=== PATIENT | male | born 1955 | race Caucasian/White ===

== ENCOUNTER → 2025-03-25 09:08 | Outpatient (BNVA) | payer MEDICARE, SELFPAY | PROVIDERS: Visit Provider Nurse Practitioner | DX: M16.11 Unilateral primary osteoarthritis, right hip (principal); M16.12 Unilateral primary osteoarthritis, left hip | CPT/HCPCS: 73523; 99204 ==

== ENCOUNTER 2025-04-18 13:03 | Outpatient (CLI) | payer MEDICARE, SELFPAY ==
[2025-04-18 14:11] LABS: Basophils # 0.1 10^3/uL (0.0-0.1); Basophils % 1.7 %; Eosinophils # 0.2 10^3/uL (0.0-0.8); Eosinophils % 3.7 %; Hematocrit 29.3 % (37-53); Lymphocytes # 1.4 10^3/uL (0.8-4.8); Lymphocytes % 25.7 %; Mean Corpuscular Hemoglobin 24.6 pg (27-33); Mean Corpuscular Volume 81.8 fl (82-101); Mean Platelet Volume 10.6 fL (7.4-10.4); Monocytes # 0.5 10^3/uL (0.2-0.9); Monocytes % 8.6 %; Neutrophils # 3.23 10^3/uL (1.8-7.7); Neutrophils % 59.9 %; Nucleated Red Blood Cells % 0 %; Platelet Count 383 10^3/cmm (157-399); Red Blood Count 3.58 10^6/uL (3.85-5.65); Red Cell Distribution Width 14.6 % (12.1-15.1); White Blood Count 5.38 10^3/uL (3.29-11.43)
[2025-04-18 14:13] LABS: Bilirubin Urine Negative (Negative); Blood Urine Negative (Negative); Glucose Urine UA Negative (Normal); Ketones Urine Negative (Negative); Leukocyte Esterase Urine 2+ (Negative); Nitrate Urine Positive (Negative); Protein Urine Negative (Negative); Specific Gravity, Urine 1.021 (1.005-1.030); Urine Appearance Cloudy (CLEAR); Urine Color Yellow (Yellow)
[2025-04-18 14:15] LABS: Add Urine Microscopic? YES; Bacteria Urine EXCEEDS /hpf; Squamous Epithelial Cell Urine 0-5 /hpf (0-5); WBC Urine 21-50 /hpf (0-5)
[2025-04-18 14:24] LABS: Add Urine Culture? Yes
[2025-04-18 14:30] LABS: Alanine Aminotransferase 18 U/L (0-41); Alkaline Phosphatase 86 U/L (40-130); Aspartate Amino Transferase 18 U/L (0-40); Blood Urea Nitrogen 14 mg/dL (8-23); Calcium 8.5 mg/dL (8.5-10.5); Carbon Dioxide 25 mmol/L (22-29); Chloride 106 mmol/L (98-107); Globulin 2.4 g/dL (1.3-4.6); Glomerular Filtration Rate 134.4 mL/min (90-130); Glucose 78 mg/dL (65-115); Osmolality Calculated 291 mOsm/kg (285-295); Sodium 141 mmol/L (136-145); Total Bilirubin 0.4 mg/dL (0.15-1.2); Total Protein 6.4 g/dL (6.6-8.7)
== END 2025-04-18 13:04 | disposition home or self-care (01) ==
LOC: LAB 13:05
PROVIDERS: Visit Provider Nurse Practitioner
DX: M25.559 Pain in unspecified hip (principal)
CPT/HCPCS: 36415; 80053; 81001; 85025

== ENCOUNTER → 2025-04-23 08:59 | Outpatient (BNVA) | payer MEDICARE, SELFPAY | PROVIDERS: Visit Provider Family Medicine | DX: Z01.818 Encounter for other preprocedural examination (principal) | CPT/HCPCS: 85007; 85027; 93005 ==

== ENCOUNTER 2025-04-29 12:39 | Outpatient (CLI) | payer MEDICARE, SELFPAY ==
[2025-04-29 13:20] LABS: Glucose Urine UA Negative (Normal); Nitrate Urine Negative (Negative); Specific Gravity, Urine 1.014 (1.005-1.030)
[2025-04-29 13:25] LABS: Add Urine Microscopic? YES
== END 2025-04-29 12:40 | disposition home or self-care (01) ==
LOC: LAB 12:44
PROVIDERS: Visit Provider Nurse Practitioner
DX: M16.11 Unilateral primary osteoarthritis, right hip (principal)
CPT/HCPCS: 81001

== ENCOUNTER 2025-04-30 14:50 | Observation (INO) | payer MEDICARE, SELFPAY ==
[2025-04-30] VITALS (14 sets, daily range): BP systolic 89–141; BP diastolic 50–87; PULSE 58–69; RESP 16–18; TEMP 34.1–36.4; O2SAT 94–100; BMI 30.8; BMI 31.9
[2025-04-30] MEDS: acetaminophen 1,000 MG/100 ML PIGGYBACK 400 MG IV ×2 (11:20→19:14)
--- NOTE | 2025-04-30 11:36 | ANES.PREANE2 ---
Pre-Anesthetic Assessment Height/Weight: Height 1.7 m Weight 89.358 kg Temp Pulse Resp BP Pulse Ox O2 Del Method 97.6 F 69 16 141/87 99 Room Air 04/30/25 10:56 04/30/25 10:56 04/30/25 10:56 04/30/25 10:56 04/30/25 10:56 04/30/25 10:56 Operation Date: 04/30/25 11:45 Proposed Procedures p LEFT Total Hip Arthroplasty(Left) - Laura Fernandez MD Familial anesthetic complications: None Was Beta Lisandro taken within 24 hours: N/A Was Clonidine taken within 24 hours: N/A Last intake: Intake Last Liquid Date 04/29/25 Last Liquid Time 22:00 Last Solid Date 04/29/25 Last Solid Time 15:00 Social No alcohol and No tobacco Exam alert, oriented x 3, clear to auscultation bilaterally and regular rate & rhythm Airway Mallampati: Class II Dentition: full CV/HEM Atrial Fibrillation (HX a fib, no issues since ablation), Anemia and Deep Vein Thrombosis (after her ablation, no longer on blood thinners) Anesthetic Plan ASA status: 3 Anesthesia: Regional (specify below) Risk of > 500 ml blood loss (7ml/kg in children): Yes, adequate IV access and fluids planned Other Pertinent Information Type and screen obtained Medications/Allergies Home Medications ?Medication ?Instructions ?Recorded ?Confirmed ?Last Taken ?Type dhea 10 progesterone 400 mg PO DAILY 03/25/25 04/29/25 04/08/25 History diclofenac sodium 50 mg 50 mg PO DAILY 03/25/25 04/29/25 04/23/25 History tablet,delayed release gabapentin 300 mg capsule 300 mg PO TID 03/25/25 04/29/25 04/29/25 History magnesium glycinate 100 mg (as 100 mg PO DAILY 03/25/25 04/29/25 04/23/25 History glycinate) tablet methylsulfonylmethane 1,000 mg 1,000 mg PO BID 03/25/25 04/29/25 Unknown History capsule (MSM) potassium chloride 10 mEq 10 meq PO DAILY 03/25/25 04/29/25 04/23/25 History capsule,extended release vitamin B complex 1 tab PO DAILY 03/25/25 04/29/25 04/23/25 History nitrofurantoin 100 mg PO Q12H 7 days #14 caps 04/18/25 04/29/25 04/08/25 Rx monohydrate/macrocrystals 100 mg capsule (Macrobid) albuterol sulfate 90 mcg/actuation 2 puff inhalation Q6H PRN Allergy 04/23/25 04/29/25 04/27/25 History aerosol inhaler (Ventolin HFA) Symptoms biotin 5,000 mcg chewable tablet 5,000 mcg PO DAILY 04/23/25 04/29/25 Unknown History black seed 4.5 gram/5 mL oral oil 4.5 g PO DAILY 04/23/25 04/29/25 Unknown History calcium 333 mg-magnesium 133 mg-D3 1 tab PO DAILY 04/23/25 04/29/25 Unknown History 1.67 mcg-zinc 5 mg tablet coenzyme Q10 200 mg/gram oral 200 mg PO DAILY 04/23/25 04/29/25 04/08/25 History powder (H2Q CoQ10) estradiol cream 1 applic topical DAILY 04/23/25 04/29/25 04/29/25 History multivitamin with minerals 1 tab PO DAILY 04/23/25 04/29/25 Unknown History (Hair,Skin and Nails tablet) vitamin D3 250 mcg (10,000 1 cap PO DAILY 04/23/25 04/29/25 04/23/25 History unit)-vitamin K2 45 mcg capsule Allergies Allergy/AdvReac Type Severity Reaction Status Date / Time No Known Allergies Allergy Verified 04/23/25 09:42 Current Medications Generic Name Dose Route Start Last Admin Trade Name Freq PRN Reason Stop Dose Admin Sodium Chloride 1,000 mls @ 30 mls/hr 04/30/25 10:15 04/30/25 11:32 Sodium Chloride 0.9% IV 05/01/25 10:14 30 mls/hr .Q24H GERBER Administration PFSH Anesthesia Medical History Primary osteoarthritis of right hip Primary osteoarthritis of left hip Social History Smoking and tobacco/nicotine status: never used tobacco/nicotine
[2025-04-30] MEDS: ceFAZolin 2,000 mg SDV 2000 MG IVP ×2 (12:16→19:14)
[2025-04-30] MEDS: BUPivacaine 0.5% INJ 10 mL 20 ML INJECTION (13:30)
[2025-04-30] MEDS: BUPivacaine liposome 13.3 mg/mL SDV 20 mL 266 MG INJECTION (13:30)
[2025-04-30] MEDS: ceFAZolin 1,000 mg SDV 1000 MG IRRIGATION (13:33)
--- NOTE | 2025-04-30 15:39 | XRR_ITS ---
PROCEDURE INFORMATION: Exam: XR Pelvis Exam date and time: 04/30/2025 3:38 PM Age: 69 years old Clinical indication: Device placement; Other: Moriah; Prior surgery; Surgery date: Post-operative (0-2 days); Additional info: S/P moriah, low ap pelvis TECHNIQUE: Imaging protocol: Radiologic exam of the pelvis. Views: 1 or 2 view. COMPARISON: CR XR hip BI m 5V wo/w pel* [id number] 03/25/2025 9:14 AM FINDINGS: Bones/joints: Left hip prosthesis is seen, with satisfactory/anatomic alignment and position. No indication of hardware failure. No adjacent fracture or acute osseous abnormality is seen. No significant change in appearance of the visualized pelvis and right hip otherwise with prior exam 03/25/2025. Soft tissues: Soft tissue lucency related to soft tissue changes adjacent to the left hip. XR/XR pelvis 1-2V* [id number] IMPRESSION: Status post left hip prosthesis, without acute findings.
--- NOTE | 2025-04-30 15:50 | ANE.PACU2 ---
Inpatient post-anesthesia follow up: Airway intact: Yes Vital signs: Temperature 97.9 F Pulse Rate 74 Respiratory Rate 17 Blood Pressure 104/63 Pulse Oximetry 98 Oxygen Delivery Me thod Room Air Oxygen Flow Rate Fraction of Inspir ed Oxygen Hydration adequate: Yes Nausea and vomiting: No Pain level: 1 Mental status: Baseline
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
--- NOTE | 2025-04-30 16:16 | PC.NURSE ---
This nurse assumed care of pt at this.
--- NOTE | 2025-04-30 16:17 | SUR.PHASEI ---
Temp on the floor was 96.8, Dr Fernandez notified by myself, Dr Fernandez requested rectal temp, Amy called Lamberto on [facility] to tell her rectal temp was needed, Lamberto reported rectal temp at 93.4, Samantha Osorio notified.
[2025-04-30] MEDS: mupirocin oint 22 gm 1 APPLIC NASAL (16:55)
[2025-04-30] MEDS: chlorhexidine gluconate 0.12% Btl 473 mL 30 ML MUCOUS MEM ×2 (16:56→21:17)
[2025-04-30] MEDS: sennosides-docusate Tablet 2 TAB PO (16:56)
[2025-04-30] MEDS: oxyCODONE 5 mg IR Tab/Cap PO ×2 (16:58→21:18)
[2025-05-01] VITALS (8 sets, daily range): BP systolic 104–122; BP diastolic 51–80; PULSE 64–74; RESP 16–19; TEMP 36.3–36.7; O2SAT 94–98
[2025-05-01] MEDS: oxyCODONE 5 mg IR Tab/Cap PO ×3 (01:48→14:34)
[2025-05-01 03:46] LABS: Hematocrit 23.8 % (36-47); Hemoglobin 6.80 g/dL (11.27-16.99); Mean Corpuscular HGB Conc 28.6 g/dL (30-55); Mean Corpuscular Hemoglobin 23.1 pg (27-33); Mean Corpuscular Volume 81.0 fl (85-98); Nucleated Red Blood Cells % 0 %; Platelet Count 291 10^3/cmm (157-399); Red Blood Count 2.94 10^6/uL (3.85-5.65); White Blood Count 5.23 10^3/uL (3.29-11.43)
[2025-05-01] MEDS: ceFAZolin 2,000 mg SDV 2000 MG IVP ×2 (03:46→12:28)
[2025-05-01] MEDS: acetaminophen 1,000 MG/100 ML PIGGYBACK 400 MG IV ×2 (03:47→12:28)
[2025-05-01 04:10] LABS: Anion Gap 14.4 (5-19); Blood Urea Nitrogen 13 mg/dL (8-23); Calcium 8.0 mg/dL (8.5-10.5); Carbon Dioxide 25 mmol/L (22-29); Chloride 106 mmol/L (98-107); Creatinine Clr Calc Pharmacy 79.6881; Glucose 109 mg/dL (65-115); Osmolality Calculated 293 mOsm/kg (285-295); Potassium 4.4 mmol/L (3.5-5.1); Sodium 141 mmol/L (136-145)
[2025-05-01] MEDS: multivitamin therapeutic Tablet 1 TAB PO (08:06)
[2025-05-01] MEDS: sennosides-docusate Tablet 2 TAB PO (08:07)
[2025-05-01] MEDS: mupirocin oint 22 gm 1 APPLIC NASAL (08:08)
[2025-05-01] MEDS: chlorhexidine gluconate 0.12% Btl 473 mL 30 ML MUCOUS MEM ×2 (08:09→12:33)
[2025-05-01 12:24] LABS: Hematocrit 27.2 % (36-47); Hemoglobin 7.80 g/dL (11.27-16.99)
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
== END 2025-05-01 15:29 | disposition home health service (06) ==
LOC: MEDSURG 14:50
PROVIDERS: Admitting Provider Specialist; Visit Provider Specialist
PROC: (CPT 27130; principal; 2025-04-30 11:45)
DX: M16.12 Unilateral primary osteoarthritis, left hip (principal); M21.852 Other specified acquired deformities of left thigh; I48.91 Unspecified atrial fibrillation; D64.9 Anemia, unspecified; I82.409 Acute embolism and thrombosis of unspecified deep veins of unspecified lower extremity
CPT/HCPCS: 27130; 36415; 51702; 72170; 80048; 85014; 85018; 85025; 86850; 86900; 97110; 97116; 97161; 97167; A4216; C1776; G0378; J0131; J0666; J0690; J2250; J2371; J2405; J2704; J3010; J3370; J3490; J7030; J9999

== ENCOUNTER → 2025-05-13 09:11 | Outpatient (BNVA) | payer MEDICARE, SELFPAY | PROVIDERS: Visit Provider Specialist | DX: Z98.890 Other specified postprocedural states (principal); Z96.642 Presence of left artificial hip joint | CPT/HCPCS: 73502; 99024 ==

== ENCOUNTER → 2025-05-28 09:56 | Outpatient (BNVA) | payer MEDICARE, SELFPAY | PROVIDERS: Visit Provider Nurse Practitioner | DX: M16.11 Unilateral primary osteoarthritis, right hip (principal); M54.16 Radiculopathy, lumbar region | CPT/HCPCS: 73523; 99214 ==

== ENCOUNTER → 2025-08-14 15:31 | Outpatient (BNVA) | payer MEDICARE, SELFPAY | PROVIDERS: Visit Provider Specialist | DX: Z47.89 Encounter for other orthopedic aftercare (principal); Z96.642 Presence of left artificial hip joint | CPT/HCPCS: 73502; 99213 ==